=== PATIENT | female | born 1975 | race Caucasian/White ===

== ENCOUNTER 2020-03-16 11:44 | Emergency (ER) | payer OTHER, SELFPAY ==
--- NOTE | ~2020-03-16 | XR_ITS ---
EXAMINATION: XR ribs LT 2V w CXR 2V INDICATION: Left chest pain, cough TECHNIQUE: PA and lateral views of the chest and 3 views of the left ribs were obtained. COMPARISON: None. FINDINGS: The lungs are free of acute opacities. There is no pleural effusion or pneumothorax. The ca rdiomediastinal silhouette is normal. No displaced rib fracture is identified. Surgical clips in the right upper quadrant are likely from prior cholecystectomy. IMPRESSION: 1. No acute cardiopulmonary abnormality or evidence of displaced rib fracture. Reviewed, dictated and finalized at location A.
[2020-03-16 12:12] VITALS: BP 119/79; PULSE 89; RESP 18; TEMP 36.7; O2SAT 98
--- NOTE | 2020-03-16 12:35 | ED.ABDPAIN ---
HPI - Abdominal Pain General Chief Complaint: Abdominal Pain Stated Complaint: pulled left abdominal muscle Time Seen by Provider: 03/16/20 12:35 History of Present Illness HPI narrative: 44 yo female with h/o of htn presents to the ED for chest wall pain. She reports Related Data Allergies Allergy/AdvReac Type Severity Reaction Status Date / Time No Known Allergies Allergy Verified 03/16/20 12:16 Course Vital Signs Vital signs: Vital Signs Temperature 36.7 C 03/16/20 12:12 Pulse Rate 89 03/16/20 12:12 Respiratory Rate 18 03/16/20 12:12 Blood Pressure 119/79 03/16/20 12:12 Pulse Oximetry 98 03/16/20 12:12 Temperature 36.7 C 03/16/20 12:12 Pulse Rate 89 03/16/20 12:12 Respiratory Rate 18 03/16/20 12:12 Blood Pressure 119/79 03/16/20 12:12 Pulse Oximetry 98 03/16/20 12:12 MDM - Abdominal Pain Imaging Data Radiologist's impression: ITS Impressions Ribs w/Chest X-Ray 03/16/20 12:54 IMPRESSION: 1. No acute cardiopulmonary abnormality or evidence of displaced rib fracture. Discharge Plan Discharge Clinical Impression: Chest wall muscle strain Qualifiers: Encounter type: initial encounter Qualified Code(s): S29.011A - Strain of muscle and tendon of front wall of thorax, initial encounter Patient Disposition: Home, Self-Care Condition: Stable Instructions: Chest Wall Pain (ED) Prescriptions: New cyclobenzaprine 10 mg tablet 10 mg PO TID PRN (Reason: muscle spasm) Qty: 20 RF: 0 ibuprofen 600 mg tablet 600 mg PO QID PRN (Reason: pain) Qty: 60 RF: 0 Follow-up/Referrals: Sole Rubi [Primary Care Provider] -
[2020-03-16] MEDS: CYCLOBENZAPRINE HCL 10 MG TABLET PO (13:00)
[2020-03-16] MEDS: KETOROLAC (*BKC) 60 MG/2 ML VIAL IM (13:01)
--- NOTE | 2020-03-16 13:04 | ED.GENADULT ---
HPI - General Adult General Chief complaint: Abdominal Pain Stated complaint: pulled left abdominal muscle Time Seen by Provider: 03/16/20 12:35 History of Present Illness HPI narrative: 44 yo female w/ htn presents to the ED for chest wall pain. Left chest wall pain x1 hour. Started after coughing. Worse with coughing, breathing, moving. She has not tried anything for the pain. No fever, SOB. Related Data Allergies Allergy/AdvReac Type Severity Reaction Status Date / Time No Known Allergies Allergy Verified 03/16/20 12:16 Review of Systems Review of Systems: All systems reviewed & are unremarkable except as noted in HPI and below Constitutional: Constitutional: Denies chills and Denies fever(s) Cardiovascular: Cardiovascular: Reports chest pain Respiratory: Respiratory: Reports chest congestion, Reports cough and Denies dyspnea Gastrointestinal: Gastrointestinal: Denies abdominal pain and Denies nausea Genitourinary: Genitourinary: Denies dysuria and Denies flank pain Musculoskeletal: Musculoskeletal: Reports back pain [facility] Past Medical History Medical History (Updated 03/16/20 @ 13:07 by Martir Blanco MD) HTN (hypertension) Social History Social History (Updated 03/16/20 @ 13:07 by Martir Blanco MD) Living arrangements: with family Exam Const: General: no acute distress and alert Nutritional Appearance: obese Orientation/consciousness: patient oriented x3 HENMT: Head: normal to inspection Chest: Chest palpation & inspection: tenderness rib (right lower) Resp: Effort & Inspection: normal respiratory effort Auscultation: clear to auscultation bilaterally Cardio: Rate: regular rate Rhythm: regular rhythm GI: Inspection: non-distended GI Palp: Yes Soft to palpation Skin: General skin exam: normal color Neuro: General: patient oriented x3 and moves all extremities Speech: normal speech Course Vital Signs Vital signs: Vital Signs Temperature 36.7 C 03/16/20 12:12 Pulse Rate 89 03/16/20 12:12 Respiratory Rate 18 03/16/20 12:12 Blood Pressure 119/79 03/16/20 12:12 Pulse Oximetry 98 03/16/20 12:12 Temperature 36.7 C 03/16/20 12:12 Pulse Rate 89 03/16/20 12:12 Respiratory Rate 18 03/16/20 12:12 Blood Pressure 119/79 03/16/20 12:12 Pulse Oximetry 98 03/16/20 12:12 Medical Decision Making MDM Narrative Medical decision making narrative: No fracture or infiltrate on X-ray Differential Diagnosis Differential Diagnosis: Chest wall strain, rib fracture, other Medical Records Medical records reviewed: Yes I reviewed the patient's medical records. Vital Signs Vital Signs: Vital Signs Temperature 36.7 C 03/16/20 12:12 Pulse Rate 89 03/16/20 12:12 Respiratory Rate 18 03/16/20 12:12 Blood Pressure 119/79 03/16/20 12:12 Pulse Oximetry 98 03/16/20 12:12 Temperature 36.7 C 03/16/20 12:12 Pulse Rate 89 03/16/20 12:12 Respiratory Rate 18 03/16/20 12:12 Blood Pressure 119/79 03/16/20 12:12 Pulse Oximetry 98 03/16/20 12:12 Imaging Data Radiologist's impression: ITS Impressions Ribs w/Chest X-Ray 03/16/20 12:54 IMPRESSION: 1. No acute cardiopulmonary abnormality or evidence of displaced rib fracture. Discharge Plan Discharge Clinical Impression: Chest wall muscle strain Qualifiers: Encounter type: initial encounter Qualified Code(s): S29.011A - Strain of muscle and tendon of front wall of thorax, initial encounter Patient Disposition: Home, Self-Care Condition: Stable Instructions: Chest Wall Pain (ED) Prescriptions: New cyclobenzaprine 10 mg tablet 10 mg PO TID PRN (Reason: muscle spasm) Qty: 20 RF: 0 ibuprofen 600 mg tablet 600 mg PO QID PRN (Reason: pain) Qty: 60 RF: 0 Follow-up/Referrals: Sole Rubi [Primary Care Provider] -
[2020-03-16 13:29] VITALS: BP 112/60; PULSE 57; RESP 18; O2SAT 98
== END 2020-03-16 13:30 | disposition home or self-care (01) ==
PROVIDERS: Emergency Provider Emergency Medicine
DX: S29.011A Strain of muscle and tendon of front wall of thorax, initial encounter (principal); I10 Essential (primary) hypertension; X50.9XXA Other and unspecified overexertion or strenuous movements or postures, initial encounter
CPT/HCPCS: 71046; 71100; 96372; 99283; A9270; J1885